=== PATIENT | female | born 1955 | race Caucasian/White ===

== ENCOUNTER 2017-10-13 15:10 | Outpatient (CLI) | payer OTHER | END 2017-10-13 15:11 | disposition home or self-care (01) | LOC: BICMAMMO 15:10 | PROVIDERS: ATTEND Internal Medicine Endocrinology, Diabetes & Metabolism | DX: M81.0 Age-related osteoporosis without current pathological fracture (principal); M85.89 Other specified disorders of bone density and structure, multiple sites | CPT/HCPCS: 77080 ==

== ENCOUNTER 2017-10-23 08:37 | Inpatient (IN) | payer OTHER ==
[2017-10-23] MEDS ORDERED: Acetaminophen 500 MG TAB ONE ×2 (09:01→09:02)
[2017-10-23] MEDS ORDERED: Ondansetron ODT 4 MG TAB ONE (09:02)
[2017-10-23 09:30] LABS: #Basophils 0.1 thou/uL (0.0-0.2); #Eosinphils 0.1 thou/uL (0.0-0.7); #Lymphocytes 1.4 thou/uL (1.20-3.40); #Monocytes 0.5 thou/uL (0.11-0.59); %Basophils 1.3 % (0.0-1.0); %Lymphocytes 22.1 % (21.0-51.0); %Monocytes 8.6 % (0.0-10.0); %Neutrophils 66.1 % (42.0-75.0); Hemoglobin 13.4 g/dL (12.0-16.0); Mean Corpuscular HGB CONC 34.2 g/dL (32.0-36.0); Mean Corpuscular Hemoglobin 36.8 pg (27.0-31.0); Mean Platelet Volume 6.3 fL (7.4-10.4); Platelet Count 208 thou/uL (130-400); RBC Distribution Width 12.2 % (11.5-14.5); Red Blood Cell (RBC) Count 3.64 mill/uL (4.20-5.40); White Blood Cell (WBC) Count 6.1 thou/uL (4.8-10.8)
[2017-10-23 09:38] LABS: ALT (SGPT) 37 U/L (8-55); AST (SGOT) 63 U/L (5-34); Albumin 3.8 g/dL (3.4-4.8); Alkaline Phosphatase 82 U/L (40-150); Anion Gap 14 mmol/L (10-20); BUN (Urea Nitrogen) 7 mg/dL (9.8-20.1); Bilirubin, Total 0.6 mg/dL (0.2-1.2); Calc. Creatinine Clearance 0 mL/min (70-130); Calcium 8.7 mg/dL (7.8-10.44); Carbon Dioxide 25 mmol/L (23-31); Chloride 101 mmol/L (98-107); Estimated GFR-MDRD Greater than 90; Globulin 2.3 g/dL (2.4-3.5); Glucose 79 mg/dL (80-115); Protein, Total 6.1 g/dL (6.0-8.3); Sodium 136 mmol/L (136-145)
[2017-10-23 09:42] LABS: Troponin I 0.012 ng/mL (< 0.028)
--- NOTE | 2017-10-23 09:44 | CT ---
CT OF THE BRAIN WITHOUT CONTRAST: Comparison: None. History: Syncope. Fall at home while in the kitchen; head injury with vomiting. Technique: Multiple contiguous axial images were obtained in a CT of the brain without contrast. FINDINGS: The brain is normal in morphology and attenuation without focal lesions or confluent areas of infarct ion. There is no evidence of hydrocephalus, intracranial hemorrhage, or extraaxial fluid collection. The calvarium and overlying soft tissues are unremarkable. The visualized paranasal sinuses and masto id air cells are well aerated. IMPRESSION: No evidence of acute intracranial abnormality. POS: [facility]
[2017-10-23 09:46] LABS: CKMB 34.5 ng/mL (0-6.6)
--- NOTE | 2017-10-23 09:46 | CT ---
CT CERVICAL SPINE WITHOUT CONTRAST: Comparison: None. History: Fall at home with head injury and neck pain. Technique: Multiple contiguous axial images were obtained in a CT of the cervical spine without contr ast. Sagittal and coronal reformats were performed. FINDINGS: There are moderate to severe degenerative changes throughout the cervical spine with intervertebral d isc space narrowing and osteophyte formation. The vertebral bodies demonstrate normal height and alig nment without acute fracture or subluxation. No prevertebral soft tissue swelling is seen. The posterior facets are well aligned. Normal alignment of the skull base with the cervical spine is seen. There are emphysematous changes in the lung apices. IMPRESSION: Degenerative changes of the cervical spine without acute osseous abnormality. POS: [facility]
--- NOTE | 2017-10-23 09:48 | RAD ---
SINGLE VIEW OF THE CHEST: Comparison: None. History: Syncope with thoracic trauma and pain. FINDINGS: Single view of the chest shows a normal sized cardiomediastinal silhouette. There is no evidence of c onsolidation, mass, or pleural effusion. There is sclerotic curvature and degenerative change in the spine. IMPRESSION: No evidence of acute cardiopulmonary disease. POS: [facility]
--- NOTE | 2017-10-23 09:49 | RAD ---
THREE VIEWS RIGHT SHOULDER: Comparison: None. History: Right shoulder pain after fall. FINDINGS: Three views of the right shoulder shows no evidence of acute fracture or dislocation. No degenerative changes are seen. The visualized right thorax is unremarkable. IMPRESSION: No evidence of acute osseous abnormality. POS: [facility]
[2017-10-23 12:27] VITALS: BMI 21.2
[2017-10-23 13:14] LABS: Troponin I 0.019 ng/mL (< 0.028)
[2017-10-23] MEDS ORDERED: Ondansetron ODT 4 MG TAB PO PRN (13:20)
[2017-10-23] MEDS ORDERED: Zolpidem Tartrate 5 MG TAB PO PRN (13:20)
[2017-10-23] MEDS: Acetaminophen 325 MG TAB PO PRN ×2 (14:42→21:26)
[2017-10-23 15:31] LABS: Troponin I Less than 0.010 ng/mL (< 0.028)
[2017-10-23] MEDS: Sodium Chloride 0.9% 1,000 ML IV SCH (15:39)
--- NOTE | 2017-10-23 16:11 | ULT ---
ULTRASOUND DOPPLER DUPLEX CAROTID: 10/23/17 HISTORY: 61-year-old female with syncope. TECHNIQUE: Brenner scale, color flow, and spectral analysis, of major arteries of the neck. FINDINGS: No plaque visualized in the proximal right internal carotid. Small focal calcified atheromatous plaque at origin of left internal carotid. Highest peak systolic velocities in the internal carotid arteries are 65 cm/s on the right and 90 cm/ s on the left. ICA/CCA ratios are 0.8 on the right and 1.0 on the left. Vertebral artery flow is antegrade bilaterally. IMPRESSION: 1. No hemodynamically significant stenosis. 2. Mild atherosclerosis at proximal left internal carotid artery. POS: [facility]
--- NOTE | 2017-10-23 20:54 | HP ---
ADMITTING PHYSICIAN: Sid Lora M.D. HISTORY OF PRESENT ILLNESS: Patient is a 61-year-old white female who presented to emergency room wi th a syncopal episode today. She states that she was in her normal state of health at home when she was a fixing a food for food preparation. She became lightheaded, passed out, striking the back of h er head and shoulder. Her was there although he did not witness the event, he is able to res pond to her immediately, though she did come around and seemed to improve, but reports that she had m ultiple episodes again of lightheadedness with a feeling that she was going to pass out and she did p ass out on 2 other occasions. She was seen and evaluated by EMS. The was able to check her blood sugar during this time and it was 93. This was noted after she had already eaten breakfast. She was seen and evaluated in the emergency room. CT scan of the brain was normal. CT scan cervical spine was normal. Shoulder x-ray was normal. She also underwent laboratory evaluations. The only thing abnormal was her CK-MB which was 34.5, but her troponins x2 thus far have been normal. At this time, she still states she feels a little bit dizzy, lightheaded. It was noted during the ti me that she felt bad at home. She had one episode of vomiting. She does note yesterday she had a normal / except for the fact she is to go to a observat ion. She did have some alcoholic beverages, but she thought she drank a normal amount of alcohol. S he does note her last meal prior to this morning was at lunch yesterday and she will need a small sonny unt of food this morning. Otherwise, no other medical complaints are noted. It is noted she does have a previous history of a syncopal episode that she did not require any type of hospitalization for it. She notes that she is not taking any prescription medications. ALLERGIES: She has no known allergies. CURRENT MEDICATIONS: None. She does take [id number] vitamins. PAST MEDICAL HISTORY/SURGICAL HISTORY: Positive for foot surgery. Medical history otherwise negativ e for atherosclerotic coronary artery disease, renal disease, diabetes, thyroid disease, cerebrovascu lar disease. SOCIAL/PERSONAL HISTORY: She is . She does drink alcohol approximately 5 drinks per week. S he does smoke. She has smoked for many years now. REVIEW OF SYSTEMS: GASTROINTESTINAL: Positive as above. GENITOURINARY: Negative. CARDIOVASCULAR: Positive as above. NEUROLOGICAL: Positive as above. PHYSICAL EXAMINATION: VITAL SIGNS: Temperature 98.4, pulse 74, respirations 18, O2 saturation 98% on room air, BP 149/91. GENERAL: She is alert, active, does not appear in any distress. HEENT: There is slight tenderness to the posterior aspect of the scalp extending over the neck. Thi s seems to be in the corresponding area where she hit her head. Does not appear to be any open wound s. No evidence of any bleeding otherwise noted. NECK: Supple. There are no masses, no bruits are auscultated. Thyroid is midline without thyromega ly or thyroid masses. LUNGS: Clear. HEART: Reveals regular rate and rhythm without murmur, gallops or rubs. ABDOMEN: Soft, nontender, bowel sounds are active. No hepatosplenomegaly is noted. There is no mandi dence of any rebound or guarding. EXTREMITIES: No clubbing, edema or cyanosis. Pulses are full and equal throughout the exam. NEUROLOGIC: She is alert and oriented x3. She responds to all commands. LABORATORY DATA: Her hemoglobin is 13.4, hematocrit 39.2, white blood count 6.1. Electrolyte panel is otherwise normal. CK-MB is elevated at 34.5. First and second troponins are negative. IMPRESSION: Syncopal episode of unknown etiology, possibly could be cardiogenic appears to be neurogenic, it also could be relative hypoglycemic event due to prolonged episodes of no food intake. PLAN: When the patient is currently stable, she will have further testing done on carotid Doppler ul [facility]. She will be monitored through the night. We will get serial troponins. If that is negati ve, we will make further treatment and evaluation and recommendations at that time.
[2017-10-24] MEDS: Acetaminophen 325 MG TAB PO PRN (02:23)
[2017-10-24] MEDS: Sodium Chloride 0.9% 1,000 ML IV SCH (02:37)
--- NOTE | 2017-10-24 07:36 | PRG ---
DATE OF SERVICE: 10/24/2017 Ms. Suarez is doing well. She has no complaints, no chest pain or shortness of breath. No recurrent syncope, dizziness. PHYSICAL EXAMINATION: VITAL SIGNS: BP 149/84, temperature 95, O2 sat 95%. LUNGS: Clear. HEART: Reveals no murmur. NEUROLOGIC: She is intact and alert. LABORATORY: Her serial troponins are negative x3. Carotid Doppler ultrasound shows no evidence of a ny significant atherosclerotic disease. IMPRESSION: Syncopal episode. PLAN: The patient can be discharged home safely. Most likely diagnosis of her syncope is probably h ypoglycemia. I have recommended to eat 3 times daily. Follow up with Dr. Altamirano. She would be inte rested in doing some type of cardiac evaluation, probably is a candidate to get a stress test or furt her monitoring done. She was discharged. She is not taking home medicine. She may take Tylenol or Advil for pain or discomfort.
[2017-10-24 07:43] VITALS: BP 149/85; TEMP 98.2
--- NOTE | 2017-10-25 14:24 | EKG ---
Test Reason : Blood Pressure : / mmHG Vent. Rate : 077 BPM Atrial Rate : 077 BPM P-R Int : 132 ms QRS Dur : 084 ms QT Int : 418 ms P-R-T Axes : 083 071 048 degrees QTc Int : 473 ms Normal sinus rhythm Prolonged QT Abnormal ECG Confirmed by CAREN BARNHART ([id number]), rewrite editor DONNY RYAN ([id number]) on 10/25/2017 2:24:12 PM Referred By: Confirmed By:CAREN BARNHART
== END 2017-10-24 09:27 | disposition home or self-care (01) | DRG 312 ==
LOC: ERS 08:37 → 2SE 11:55
PROVIDERS: ADMIT Family Medicine; ATTEND Family Medicine
PROC: 3E0234Z Introduction of Serum, Toxoid and Vaccine into Muscle, Percutaneous Approach (ICD-10-PCS; principal; 2017-10-24)
DX: R55 Syncope and collapse (principal); F17.210 Nicotine dependence, cigarettes, uncomplicated; Z23 Encounter for immunization
CPT/HCPCS: 36415; 70450; 71045; 72125; 80053; 82553; 84484; 85025; 90471; 90732; 93005; 93880; G0009; Q0162

== ENCOUNTER 2018-10-29 10:11 | Outpatient (CLI) | payer OTHER ==
--- NOTE | 2018-10-29 12:23 | BD ---
DEXA DENSITOMETRY: HISTORY: Osteoporosis screening. FINDINGS: LUMBAR SPINE BMD (g/cm2) T-SCORE L1 0.842 -1.3 L2 0.857 -1.6 L3 1.072 -0.1 L4 1.417 3.2 TOTAL 1.057 0.1 FOREARM 0.316 -2.2 MID 0.446 -2.9 ONE-THIRD 0.565 -2.2 TOTAL 0.444 -2.5 IMPRESSION: 1. The bone mineral density of the lumbar spine is within the normal range. 2. The bone mineral density of the wrist indicates osteopenia. POS: [facility]
== END 2018-10-29 10:12 | disposition home or self-care (01) ==
LOC: BICMAMMO 10:11
PROVIDERS: ATTEND Internal Medicine Endocrinology, Diabetes & Metabolism
DX: M81.0 Age-related osteoporosis without current pathological fracture (principal); M85.839 Other specified disorders of bone density and structure, unspecified forearm
CPT/HCPCS: 77080

== ENCOUNTER 2019-04-01 16:03 | Emergency (ER) | payer OTHER ==
[2019-04-01 16:33] LABS: #Basophils 0.1 thou/uL (0.0-0.2); #Eosinphils 0.1 thou/uL (0.0-0.7); #Lymphocytes 1.9 thou/uL (1.20-3.40); #Monocytes 0.5 thou/uL (0.11-0.59); %Basophils 1.3 % (0.0-1.0); %Eosinophils 2.9 % (0.0-10.0); %Lymphocytes 41.4 % (21.0-51.0); %Monocytes 10.8 % (0.0-10.0); %Neutrophils 43.6 % (42.0-75.0); Hemoglobin 14.2 g/dL (12.0-16.0); Mean Corpuscular HGB CONC 34.6 g/dL (32.0-36.0); Mean Corpuscular Hemoglobin 36.4 pg (27.0-31.0); Mean Platelet Volume 7.8 fL (7.4-10.4); Platelet Count 244 thou/uL (130-400); Red Blood Cell (RBC) Count 3.91 mill/uL (4.20-5.40); White Blood Cell (WBC) Count 4.7 thou/uL (4.8-10.8)
[2019-04-01 16:51] LABS: ALT (SGPT) 25 U/L (8-55); AST (SGOT) 35 U/L (5-34); Albumin 4.7 g/dL (3.4-4.8); Alkaline Phosphatase 64 U/L (40-110); Anion Gap 16 mmol/L (10-20); BUN (Urea Nitrogen) 9 mg/dL (9.8-20.1); Bilirubin, Total 0.7 mg/dL (0.2-1.2); Calc. Creatinine Clearance 0 mL/min (70-130); Calcium 9.6 mg/dL (7.8-10.44); Carbon Dioxide 26 mmol/L (23-31); Chloride 97 mmol/L (98-107); Estimated GFR-MDRD 84; Globulin 2.9 g/dL (2.4-3.5); Glucose 108 mg/dL (80-115); Potassium 4.3 mmol/L (3.5-5.1); Protein, Total 7.6 g/dL (6.0-8.3); Sodium 135 mmol/L (136-145)
--- NOTE | 2019-04-01 17:27 | RAD ---
EXAM: Portable chest PROVIDED CLINICAL HISTORY: Chest pain COMPARISON: 10/23/2017 FINDINGS: Cardiac and mediastinal silhouette is within normal limits. No focal consolidation, pleural fluid or pneumothorax evident. Thoracic scoliosis and vascular calcification again seen. IMPRESSION: No evidence for an acute cardiopulmonary process.
== END 2019-04-01 17:55 | disposition home or self-care (01) ==
LOC: ERS 16:03
DX: R07.9 Chest pain, unspecified (principal); Z87.891 Personal history of nicotine dependence
CPT/HCPCS: 71045; 80053; 84484; 85025; 93005

== ENCOUNTER 2019-04-16 13:04 | Outpatient (CLI) | payer OTHER ==
--- NOTE | 2019-04-16 14:21 | MMO ---
Bilateral MAMMO Bilat Screen [facility]. CLINICAL HISTORY: Patient is 63 years old and is seen for screening. The patient has no family history of breast cancer. The patient has no personal history of cancer. VIEWS: The views performed were: bilateral craniocaudal with tomosynthesis and bilateral mediolateral oblique with tomosynthesis. This study has been interpreted with the assistance of computer-aided detection. MAMMOGRAM FINDINGS: The breasts are heterogeneously dense, which could obscure a lesion on mammography. Finding 1: There are calcifications with grouped or clustered distribution seen in the upper-inner region of the right breast. Finding 2: There are calcifications with grouped or clustered distribution seen in the upper-inner region of the left breast. IMPRESSION: FINDING 1: CALCIFICATIONS IN THE RIGHT BREAST REQUIRE ADDITIONAL EVALUATION. RECOMMEND DIAGNOSTIC MAMMOGRAM. FINDING 2: CALCIFICATIONS IN THE LEFT BREAST REQUIRE ADDITIONAL EVALUATION. RECOMMEND DIAGNOSTIC MAMMOGRAM. THE RESULTS OF THIS EXAM WERE SENT TO THE PATIENT. ACR BI-RADS Category 0 - Incomplete: Need additional imaging evaluation. [facility] will notify the patient of the need for additional imaging services. MAMMOGRAPHY NOTE: 1. A negative mammogram report should not delay a biopsy if a dominant of clinically suspicious mass is present. 2. Approximately 10% to 15% of breast cancers are not detected by mammography. 3. Adenosis and dense breasts may obscure an underlying neoplasm. Reported by: ISIAH BERG MD Electonically Signed: [id number]
== END 2019-04-16 13:05 | disposition home or self-care (01) ==
LOC: BICMAMMO 13:04
PROVIDERS: ATTEND Physician Assistant
DX: Z12.31 Encounter for screening mammogram for malignant neoplasm of breast (principal); R92.1 Mammographic calcification found on diagnostic imaging of breast
CPT/HCPCS: 77063; 77067

== ENCOUNTER 2019-04-23 14:05 | Outpatient (CLI) | payer OTHER ==
--- NOTE | 2019-04-23 15:02 | MMO ---
Bilateral MAMMO Bilat Diag [facility]. CLINICAL HISTORY: Patient is 63 years old and is seen for diagnostic exam. The patient has no family history of breast cancer. The patient has no personal history of cancer. VIEWS: The views performed were: bilateral craniocaudal spot compression magnification; bilateral mediolateral spot compression magnification; and bilateral mediolateral with tomosynthesis. FILMS COMPARED: The present examination has been compared to a prior imaging study performed at [facility] on 04/16/2019. This study has been interpreted with the assistance of computer-aided detection. MAMMOGRAM FINDINGS: The breasts are heterogeneously dense, which could obscure a lesion on mammography. Finding 1: There are calcifications with grouped or clustered distribution seen in the middle region of the right breast at 3 o'clock. Majority of the calcifications are coarse in appearance. Finding 2: There are calcifications with grouped or clustered distribution seen in the middle region of the left breast at 11 o'clock. The calcifications have a coarse appearance upon magnification. There are no suspicious masses, suspicious calcifications, or new areas of architectural distortion. IMPRESSION: THERE IS NO MAMMOGRAPHIC EVIDENCE OF MALIGNANCY. A ROUTINE FOLLOW-UP MAMMOGRAM IN 1 YEAR IS RECOMMENDED. THE RESULTS OF THIS EXAM WERE SENT TO THE PATIENT. ACR BI-RADS Category 2 - Benign finding MAMMOGRAPHY NOTE: 1. A negative mammogram report should not delay a biopsy if a dominant of clinically suspicious mass is present. 2. Approximately 10% to 15% of breast cancers are not detected by mammography. 3. Adenosis and dense breasts may obscure an underlying neoplasm. Reported by: JESSICA GIBBS MD Electonically Signed: [id number]
== END 2019-04-23 14:06 | disposition home or self-care (01) ==
LOC: BICMAMMO 14:05
PROVIDERS: ATTEND Physician Assistant
DX: R92.1 Mammographic calcification found on diagnostic imaging of breast (principal)
CPT/HCPCS: 77066; G0279

== ENCOUNTER 2019-11-12 10:24 | Outpatient (CLI) | payer MEDICARE ==
--- NOTE | 2019-11-12 11:24 | BD ---
BONE DENSITOMETRY USING DEXA: HISTORY: Postmenopausal screening for osteoporosis. FINDINGS: Lumbar Spine: BMD (g/cm2) L1 0.813 T-Score: -1.6 Z-Score: 0.0 L2 0.852 T-Score: -1.6 Z-Score: 0.1 L3 1.104 T-Score: -0.2 Z-Score: 2.0 L4 1.333 T-Score: 2.5 Z-Score: 4.4 L1-L4 1.033 T-Score: -0.1 Z-Score: 1.6 Femoral Neck: 0.738 T-Score: -1.0 Z-Score: 0.5 Total Femur: 0.871 T-Score: -0.6 Z-Score: 0.6 There has been interval reduction of 2.3% in the BMD of the lumbar spine and a reduction of 0.6% in t he BMD of the proximal femur since 10/29/2018. Impression: Normal bone mineral density. POS: [facility]
== END 2019-11-12 10:25 | disposition home or self-care (01) ==
LOC: BICMAMMO 10:24
PROVIDERS: ATTEND Internal Medicine Endocrinology, Diabetes & Metabolism
DX: M81.0 Age-related osteoporosis without current pathological fracture (principal)
CPT/HCPCS: 77080

== ENCOUNTER 2019-11-22 07:25 | Outpatient (CLI) | payer MEDICARE, OTHER ==
[2019-11-22 14:19] LABS: Anion Gap 15 mmol/L (10-20); BUN (Urea Nitrogen) 8 mg/dL (9.8-20.1); Calc. Creatinine Clearance 0 mL/min (70-130); Calcium 9.6 mg/dL (7.8-10.44); Carbon Dioxide 28 mmol/L (23-31); Chloride 92 mmol/L (98-107); Estimated GFR-MDRD Greater than 90; Glucose 81 mg/dL (80-115); Potassium 4.4 mmol/L (3.5-5.1); Sodium 131 mmol/L (136-145)
[2019-11-22 14:37] LABS: #Basophils 0.1 thou/uL (0.0-0.2); #Eosinphils 0.1 thou/uL (0.0-0.7); #Lymphocytes 2.1 thou/uL (1.20-3.40); #Monocytes 0.6 thou/uL (0.11-0.59); #Neutrophils 2.7 thou/uL (1.40-6.50); %Basophils 1.5 % (0.0-1.0); %Eosinophils 1.5 % (0.0-10.0); %Lymphocytes 37.9 % (21.0-51.0); %Monocytes 10.6 % (0.0-10.0); %Neutrophils 48.5 % (42.0-75.0); Hemoglobin 12.8 g/dL (12.0-16.0); MDiff Complete? YES; Macrocytosis SLIGHT = 6-15 cells (100X) (0-5/hpf); Mean Corpuscular HGB CONC 33.1 g/dL (32.0-36.0); Mean Corpuscular Hemoglobin 35.6 pg (27.0-31.0); Mean Platelet Volume 7.2 fL (7.4-10.4); Platelet Count 236 thou/uL (130-400); Platelet Morphology Comment Appears Adequate; Polychromasia SLIGHT = 2-3 cells (100X) (0-2/hpf); RBC Distribution Width 12.1 % (11.5-14.5); White Blood Cell (WBC) Count 5.6 thou/uL (4.8-10.8)
[2019-11-23 14:14] LABS: SARS-CoV-2 MS2 Positive; SARS-CoV-2 N Gene Negative; SARS-CoV-2 S Gene Negative; SARS-CoV-2 by NAA Not Detected (NotDetected); SARS-CoV-2 orf1ab Negative
== END 2019-11-22 07:26 | disposition home or self-care (01) ==
LOC: LABBT 07:25
PROVIDERS: ATTEND Surgery
DX: Z01.812 Encounter for preprocedural laboratory examination (principal); Z11.59 Encounter for screening for other viral diseases; K40.90 Unilateral inguinal hernia, without obstruction or gangrene, not specified as recurrent
CPT/HCPCS: 80048; 85025; U0003; 87635

== ENCOUNTER 2019-11-25 05:58 | Day surgery (SDC) | payer MEDICARE ==
[2019-11-22 11:11] VITALS: BMI 23.6
[2019-11-25] MEDS ORDERED: Fentanyl 100 MCG/2 ML VIAL ONE ×2 (06:37→08:39)
[2019-11-25] MEDS ORDERED: Bupivacaine 0.25% HCL 30 ML VIAL ONE (06:43)
[2019-11-25] MEDS ORDERED: Lidocaine 1% w/Epinephrine 1:100K 20 ML VIAL ONE (06:43)
[2019-11-25] MEDS ORDERED: Meperidine HCl/PF 25 MG/ML VIAL ONE (08:54)
--- NOTE | 2019-11-25 10:24 | OP ---
DATE OF PROCEDURE: 11/25/2019 PREOPERATIVE DIAGNOSIS: Left inguinal hernia. POSTOPERATIVE DIAGNOSIS: Left inguinal hernia. PROCEDURE PERFORMED: Da Nasir laparoscopic left inguinal hernia repair with mesh, Bard 3DMax medium. ANESTHESIA: General. ESTIMATED BLOOD LOSS: Minimal. COMPLICATIONS: None. SPECIMEN: None. FINDINGS: Left inguinal hernia. DESCRIPTION OF PROCEDURE: The patient was taken to the operating room and laid supine on the operating room table. After general anesthetic was obtained, a Magallon was placed. The abdomen was prepped and draped in a sterile fashion. A curved incision was made above the umbilicus. Cautery was used to dissect down to and score the fascia. Abdominal cavity was entered bluntly using a Abiola clamp. An 11-mm balloon trocar was placed. High-flow pneumoperitoneum was obtained. Left and right abdominal robotic trocars were placed. There was a left inguinal hernia. There was no right inguinal hernia. Peritoneum was taken down in the left groin and the preperitoneal space was entered. Preperitoneal space was bluntly dissected to the pubic tubercle medially, anterior superior iliac crest laterally. Shelving edge of inguinal ligament was fully exposed. There was a large indirect hernia. This was dissected away from the round ligament high up on to the peritoneum. The round ligament was transected using the cautery without bleeding. The 3DMax medium mesh was brought into the sterile field and M-labeled medial aspect was placed over the pubic tubercle. The mesh was laid out lateral to cover the femoral direct and indirect areas. The mesh was sewn via 2-0 Vicryl to the pubic tubercle medially, to the posterior fascia laterally. The 3-0 Stratafix was used to reapproximate the peritoneum. All port sites were infiltrated using local anesthetic. All ports were removed under direct visualization. Both needles had been removed and accounted for. PDS was used to close the fascial defect above the umbilicus. All incisions were irrigated and closed using 4-0 Monocryl and Dermabond. The patient was sent to Recovery in stable condition. All instrument counts, needle counts, and lap counts were correct. Job ID: [id number]
[2019-11-25] MEDS ORDERED: Ketorolac Tromethamine 30 MG/ML VIAL ONE (11:08)
[2019-11-25] MEDS ORDERED: Lidocaine 1% PF 5 ML VIAL ONE (11:08)
[2019-11-25] MEDS ORDERED: Rocuronium Bromide 10 MG/ML (10ML VIAL) ONE (11:08)
[2019-11-25] MEDS ORDERED: PROPOFOL 200 MG/20 ML VIAL ONE (11:08)
[2019-11-25] MEDS ORDERED: EPHEDRINE 25 MG/5 ML SYRINGE ONE (11:08)
[2019-11-25] MEDS ORDERED: Dexamethasone 20 MG/5 ML VIAL ONE (11:08)
[2019-11-25] MEDS ORDERED: Glycopyrrolate 0.2 MG/ML 5 ML SYRINGE ONE (11:08)
[2019-11-25] MEDS ORDERED: PHENYLEPHRINE-NS 100 MCG/ML 10 ML SYRINGE ONE (11:08)
== END 2019-11-25 11:00 | disposition home or self-care (01) ==
LOC: SDC 05:58
PROVIDERS: ATTEND Surgery
PROC: 0YU64JZ Supplement Left Inguinal Region with Synthetic Substitute, Percutaneous Endoscopic Approach (ICD-10-PCS; principal; 2019-11-25)
DX: K40.90 Unilateral inguinal hernia, without obstruction or gangrene, not specified as recurrent (principal); M81.0 Age-related osteoporosis without current pathological fracture; Z87.891 Personal history of nicotine dependence; Z79.83 Long term (current) use of bisphosphonates; Z79.899 Other long term (current) drug therapy
CPT/HCPCS: 49650; C1781; J0690; J1100; J1885; J2175; J2704; J3010; S0020

== ENCOUNTER 2020-02-17 13:42 | Outpatient (CLI) | payer MEDICARE ==
--- NOTE | 2020-02-17 20:51 | BD ---
Exam: DEXA Bone Density 02/17/20 INDICATION: Postmenopausal screening. Forearm exam was performed. BMD (g/cm2) 04/23 0.637 T-Score: -1.0 Mid 0.522 T-Score: -1.6 UD 0.397 T-Score: -0.8 Total 0.513 T-Score: -1.2 Impression: Bone mineral density of the wrist is within normal range. POS: [facility]
== END 2020-02-17 13:43 | disposition home or self-care (01) ==
LOC: BICMAMMO 13:42
PROVIDERS: ATTEND Internal Medicine Endocrinology, Diabetes & Metabolism
DX: M81.0 Age-related osteoporosis without current pathological fracture (principal)
CPT/HCPCS: 77080

== ENCOUNTER 2020-09-29 15:34 | Outpatient (CLI) | payer MEDICARE | END 2020-09-29 15:35 | disposition home or self-care (01) | LOC: BICRAD 15:34 | PROVIDERS: ATTEND Internal Medicine Rheumatology | DX: M46.1 Sacroiliitis, not elsewhere classified (principal); M47.816 Spondylosis without myelopathy or radiculopathy, lumbar region | CPT/HCPCS: 72202 ==

== ENCOUNTER 2020-11-10 13:46 | Outpatient (CLI) | payer MEDICARE | END 2020-11-10 13:47 | disposition home or self-care (01) | LOC: BICMAMMO 13:46 | PROVIDERS: ATTEND Internal Medicine Endocrinology, Diabetes & Metabolism | DX: M81.0 Age-related osteoporosis without current pathological fracture (principal); M85.852 Other specified disorders of bone density and structure, left thigh; M85.851 Other specified disorders of bone density and structure, right thigh | CPT/HCPCS: 77080 ==

== ENCOUNTER 2021-04-19 09:04 | Outpatient (CLI) | payer MEDICARE | END 2021-04-19 09:05 | disposition home or self-care (01) | LOC: BICMAMMO 09:04 | PROVIDERS: ATTEND Nurse Practitioner Family | DX: N64.4 Mastodynia (principal); N63.0 Unspecified lump in unspecified breast; R92.1 Mammographic calcification found on diagnostic imaging of breast | CPT/HCPCS: 77066; G0279 ==

== ENCOUNTER 2021-10-02 12:58 | Emergency (ER) | payer MEDICARE ==
[2021-10-02 13:54] LABS: #Lymphocytes 1.3 thou/uL (1.20-3.40); #Monocytes 0.7 thou/uL (0.11-0.59); #Neutrophils 4.1 thou/uL (1.40-6.50); %Basophils 0.5 % (0.0-1.0); %Eosinophils 0.6 % (0.0-10.0); %Monocytes 10.6 % (0.0-10.0); %Neutrophils 67.3 % (42.0-75.0); Hemoglobin 13.1 g/dL (12.0-16.0); Mean Corpuscular HGB CONC 33.5 g/dL (32.0-36.0); Mean Corpuscular Hemoglobin 36.1 pg (27.0-31.0); Mean Platelet Volume 6.3 fL (7.4-10.4); Platelet Count 210 thou/uL (130-400); RBC Distribution Width 12.4 % (11.5-14.5); Red Blood Cell (RBC) Count 3.63 mill/uL (4.20-5.40); White Blood Cell (WBC) Count 6.1 thou/uL (4.8-10.8)
[2021-10-02 14:19] LABS: ALT (SGPT) 22 U/L (8-55); AST (SGOT) 26 U/L (5-34); Albumin 3.9 g/dL (3.4-4.8); Alkaline Phosphatase 63 U/L (40-110); Anion Gap 13 mmol/L (10-20); BUN (Urea Nitrogen) 12 mg/dL (9.8-20.1); Calc. Creatinine Clearance 0 mL/min (70-130); Calcium 9.2 mg/dL (7.8-10.44); Carbon Dioxide 27 mmol/L (23-31); Chloride 99 mmol/L (98-107); Globulin 2.6 g/dL (2.4-3.5); Glucose 126 mg/dL (80-115); Potassium 3.7 mmol/L (3.5-5.1); Protein, Total 6.5 g/dL (5.8-8.1); Sodium 135 mmol/L (136-145)
[2021-10-02 14:21] LABS: MDiff Complete? YES; Macrocytosis SLIGHT = 6-15 cells (100X) (0-5/hpf); Platelet Morphology Comment Appears Adequate
[2021-10-02] MEDS ORDERED: Acetaminophen 500 MG TAB ONE (15:18)
== END 2021-10-02 15:35 | disposition home or self-care (01) ==
LOC: ERS 12:58
DX: R55 Syncope and collapse (principal); S92.511A Displaced fracture of proximal phalanx of right lesser toe(s), initial encounter for closed fracture; S09.90XA Unspecified injury of head, initial encounter; W18.30XA Fall on same level, unspecified, initial encounter; Z87.891 Personal history of nicotine dependence; Z79.899 Other long term (current) drug therapy
CPT/HCPCS: 29550; 36415; 70450; 71045; 72125; 80053; 84484; 85025; 93005

== ENCOUNTER 2021-10-31 12:23 | Outpatient (CLI) | payer MEDICARE ==
[~2021-10-31 12:23] MED LIST: Iopamidol-370 76% 500 ML 1 ML ONE
== END 2021-10-31 12:24 | disposition home or self-care (01) ==
LOC: BICCT 12:23
PROVIDERS: ATTEND Nurse Practitioner Family
DX: R79.89 Other specified abnormal findings of blood chemistry (principal); N20.0 Calculus of kidney; K31.89 Other diseases of stomach and duodenum; R91.1 Solitary pulmonary nodule
CPT/HCPCS: 74170; 82565; Q9967

== ENCOUNTER 2022-05-08 12:49 | Outpatient (CLI) | payer MEDICARE ==
[2022-05-08 14:03] LABS: #Basophils 0.1 10x3/uL (0.0-0.2); #Eosinphils 0.2 10x3/uL (0.0-0.5); #Monocytes 0.5 10x3/uL (0.0-1.1); #Neutrophils 2.2 10x3/uL (1.5-8.4); %Eosinophils 3.1 % (0.0-6.0); %Lymphocytes 39.5 % (18.0-47.0); %Monocytes 10.1 % (0.0-10.0); %Neutrophils 46.1 % (40.0-75.0); Hemoglobin 13.2 g/dL (12.0-15.5); Mean Corpuscular HGB CONC 36.5 g/dL (32.0-36.0); Mean Corpuscular Hemoglobin 35.6 pg (27.0-33.0); Mean Corpuscular Volume 97.6 fl (81.6-98.3); Mean Platelet Volume 9.1 fl (7.4-10.4); Platelet Count 194 10x3/uL (150-450); RBC Distribution Width 13.6 % (11.5-14.5); Red Blood Cell (RBC) Count 3.71 10x6/uL (3.90-5.03); White Blood Cell (WBC) Count 4.8 10x3/uL (3.5-10.5)
== END 2022-05-08 12:50 | disposition home or self-care (01) ==
LOC: LABBT 12:49
PROVIDERS: ATTEND Orthopaedic Surgery Hand Surgery
DX: Z01.818 Encounter for other preprocedural examination (principal); M65.311 Trigger thumb, right thumb; M18.11 Unilateral primary osteoarthritis of first carpometacarpal joint, right hand
CPT/HCPCS: 85025; 93005; 93010

== ENCOUNTER 2022-05-10 05:35 | Observation (INO) | payer MEDICARE ==
[2022-05-10] MEDS ORDERED: Neomycin-Polymyxin 1 ML AMP ONE (06:36)
[2022-05-10] MEDS ORDERED: Bacitracin Zinc Ointment 30 gm TUBE ONE (06:36)
[2022-05-10] MEDS ORDERED: Bupivacaine PF 0.5% 30 ML VIAL ONE ×2 (06:36→06:55)
[2022-05-10] MEDS ORDERED: Fentanyl 250 MCG/5 ML VIAL ONE (06:46)
[2022-05-10] MEDS ORDERED: Midazolam HCl 2 mg/2 ml Vial ONE (06:55)
[2022-05-10] MEDS ORDERED: EPINEPHrine 1 MG/ML AMP ONE (06:55)
[2022-05-10] MEDS ORDERED: Fentanyl 100 MCG/2 ML VIAL ONE (06:55)
[2022-05-10] MEDS ORDERED: Lidocaine 1% (PF) 30 ML VIAL ONE (06:55)
[2022-05-10] MEDS ORDERED: Sodium Chloride 0.9% 100 ML ONE (07:11)
[2022-05-10] MEDS ORDERED: CEFAZOLIN 2 GM VIAL ONE (07:11)
[2022-05-10] MEDS ORDERED: PROPOFOL 200 MG/20 ML VIAL ONE (07:28)
[2022-05-10] MEDS ORDERED: ePHEDrine 50 MG/ML VIAL ONE (07:28)
[2022-05-10] MEDS ORDERED: Lidocaine 1% PF 5 ML VIAL ONE (07:28)
[2022-05-10] MEDS ORDERED: PHENYLEPHRINE-NS 100 MCG/ML 10 ML SYRINGE ONE (07:28)
[2022-05-10] MEDS ORDERED: Ketorolac Tromethamine 30 MG/ML VIAL ONE (11:11)
[2022-05-10] MEDS ORDERED: Acetaminophen 325 MG TAB PO PRN (15:42)
[2022-05-10] MEDS ORDERED: Ondansetron PF 4 MG/2 ML Vial IVP PRN (15:42)
[2022-05-10] MEDS ORDERED: Aspirin 81 mg Enteric Coated Tablet PO SCH (16:15)
[2022-05-10 18:41] VITALS: BMI 24.8
[2022-05-10] MEDS ORDERED: traMADol HCl 50 MG TAB PO SCH (21:15)
[2022-05-10 21:23] LABS: #Basophils 0.1 thou/uL (0.0-0.2); #Eosinphils 0.1 thou/uL (0.0-0.7); #Lymphocytes 1.6 thou/uL (1.20-3.40); #Monocytes 0.6 thou/uL (0.11-0.59); #Neutrophils 3.2 thou/uL (1.40-6.50); %Basophils 1.1 % (0.0-1.0); %Eosinophils 2.3 % (0.0-10.0); %Lymphocytes 28.9 % (21.0-51.0); %Monocytes 10.3 % (0.0-10.0); %Neutrophils 57.4 % (42.0-75.0); Hemoglobin 12.1 g/dL (12.0-16.0); Mean Corpuscular HGB CONC 33.8 g/dL (32.0-36.0); Mean Corpuscular Hemoglobin 36.1 pg (27.0-31.0); Mean Platelet Volume 6.7 fL (7.4-10.4); Platelet Count 171 10x3/uL (130-400); RBC Distribution Width 12.4 % (11.5-14.5); Red Blood Cell (RBC) Count 3.35 mill/uL (4.20-5.40); White Blood Cell (WBC) Count 5.6 10x3/uL (4.8-10.8)
[2022-05-10 21:41] LABS: ALT (SGPT) 15 U/L (8-55); AST (SGOT) 31 U/L (5-34); Albumin 3.5 g/dL (3.4-4.8); Alkaline Phosphatase 55 U/L (40-110); Anion Gap 11 mmol/L (10-20); BUN (Urea Nitrogen) 10 mg/dL (9.8-20.1); Bilirubin, Total 0.8 mg/dL (0.2-1.2); Calc. Creatinine Clearance 96 mL/min (70-130); Calcium 9.3 mg/dL (7.8-10.44); Carbon Dioxide 26 mmol/L (23-31); Chloride 102 mmol/L (98-107); Estimated GFR 99; Glucose 124 mg/dL (80-115); Potassium 3.8 mmol/L (3.5-5.1); Protein, Total 5.5 g/dL (5.8-8.1); Sodium 135 mmol/L (136-145)
[2022-05-11] MEDS: HYDROcodone/Acetaminophen 5/325 mg Tablet PO PRN ×4 (04:26→13:28)
[2022-05-11] MEDS ORDERED: SELENIUM 50 MCG PO SCH (09:00)
[2022-05-11] MEDS ORDERED: Aspirin 81 mg Enteric Coated Tablet PO SCH (09:00)
[2022-05-11] MEDS ORDERED: Vit A,C & E/Lutein/Minerals Tablet PO SCH (09:00)
[2022-05-11] MEDS ORDERED: Fish Oil 1,000 MG CAP PO SCH (09:00)
[2022-05-11] MEDS ORDERED: Thiamine HCl 200 MG/2 ML VIAL SLOW IVP SCH (09:00)
[2022-05-11 16:39] VITALS: BP 158/72; TEMP 97.8
== END 2022-05-11 16:30 | disposition home or self-care (01) ==
LOC: SDC 05:35 → 2SW 18:19
PROVIDERS: ADMIT Internal Medicine; ATTEND Orthopaedic Surgery Hand Surgery
PROC: 0LN80ZZ Release Left Hand Tendon, Open Approach (ICD-10-PCS; principal; 2022-05-10)
PROC: 0RUT07Z Supplement Left Carpometacarpal Joint with Autologous Tissue Substitute, Open Approach (ICD-10-PCS; 2022-05-10)
DX: M18.0 Bilateral primary osteoarthritis of first carpometacarpal joints (principal); M65.312 Trigger thumb, left thumb; M65.311 Trigger thumb, right thumb; R26.81 Unsteadiness on feet; F10.10 Alcohol abuse, uncomplicated; R03.0 Elevated blood-pressure reading, without diagnosis of hypertension; M81.0 Age-related osteoporosis without current pathological fracture; Z86.16 Personal history of COVID-19; Z87.891 Personal history of nicotine dependence; Z79.899 Other long term (current) drug therapy; Z20.822 Contact with and (suspected) exposure to COVID-19
CPT/HCPCS: 25310; 25447; 26055; 70551; 73100; 80053; 80061; 82607; 85025; 96372; 96374; 97116; C1894; G0378 ×2; U0003; U0005; 36415; C1713; J0171; J1650; J1885; J2001; J2250; J2704; J3010; J3411; J3490; S0020

== ENCOUNTER 2023-01-22 12:14 | Outpatient (CLI) | payer MEDICARE | END 2023-01-22 12:15 | disposition home or self-care (01) | LOC: ULT 12:14 | PROVIDERS: ATTEND Nurse Practitioner Family | DX: I99.9 Unspecified disorder of circulatory system (principal) | CPT/HCPCS: 93923; 93970 ==

== ENCOUNTER 2023-06-27 10:49 | Day surgery (SDC) | payer MEDICARE ==
[2023-06-24 12:38] VITALS: BMI 22.4
[2023-06-27] MEDS ORDERED: fentaNYL 50 mcg/mL 1 mL Vial ONE (13:22)
[2023-06-27] MEDS ORDERED: Bacitracin Zinc Ointment 30 gm TUBE ONE (14:35)
[2023-06-27] MEDS ORDERED: Bupivacaine PF 0.5% 30 ML VIAL ONE (14:35)
[2023-06-27] MEDS ORDERED: fentaNYL PF 100 MCG/2 ML SYRINGE ONE (14:40)
[2023-06-27] MEDS ORDERED: PROPOFOL 20 ML ONE (14:40)
[2023-06-27] MEDS ORDERED: Sodium Chloride 0.9% 100 ML ONE (14:41)
[2023-06-27] MEDS ORDERED: CEFAZOLIN 2 GM VIAL ONE (14:41)
[2023-06-27] MEDS ORDERED: Dexamethasone 20 MG/5 ML VIAL ONE (14:54)
[2023-06-27] MEDS ORDERED: Bupivacaine HCl 0.5%/Epinephrine 1:200,000/PF 30 ml Vial ONE (14:54)
[2023-06-27] MEDS ORDERED: Ondansetron PF 4 MG/2 ML Vial ONE (14:54)
[2023-06-27] MEDS ORDERED: Lidocaine 1% PF 5 ML VIAL ONE (14:54)
[2023-06-27] MEDS ORDERED: PHENYLEPHRINE-NS 100 MCG/ML 10 ML SYRINGE ONE (14:54)
[2023-06-27] MEDS ORDERED: Rocuronium Bromide 10 MG/ML (10ML VIAL) ONE (14:54)
[2023-06-27] MEDS ORDERED: SUGAMMADEX SODIUM 200 MG/2 ML VIAL ONE (16:09)
[2023-06-27] MEDS ORDERED: Ketorolac Tromethamine 30 MG (1 mL) VIAL ONE (16:41)
== END 2023-06-27 18:28 | disposition home or self-care (01) ==
LOC: SDC 10:49
PROVIDERS: ATTEND Orthopaedic Surgery Hand Surgery
PROC: 0PSQ04Z Reposition Left Metacarpal with Internal Fixation Device, Open Approach (ICD-10-PCS; principal; 2023-06-27)
DX: S63.045A Dislocation of carpometacarpal joint of left thumb, initial encounter (principal); M25.342 Other instability, left hand; M79.2 Neuralgia and neuritis, unspecified; Z87.891 Personal history of nicotine dependence; Z96.60 Presence of unspecified orthopedic joint implant; X58.XXXA Exposure to other specified factors, initial encounter
CPT/HCPCS: 25645; 73100; C1713; J3010; J0665; J1100; J1885; J2405; J2704; J3490

== ENCOUNTER 2024-04-08 14:09 | Outpatient (CLI) | payer MEDICARE | END 2024-04-08 14:10 | disposition home or self-care (01) | LOC: BICCT 14:09 | PROVIDERS: ATTEND Internal Medicine Cardiovascular Disease | DX: I73.9 Peripheral vascular disease, unspecified (principal); I77.1 Stricture of artery; M47.816 Spondylosis without myelopathy or radiculopathy, lumbar region | CPT/HCPCS: 36415; 75635; 82565 ==